=== PATIENT | male | born 1975 | race Caucasian/White ===

== ENCOUNTER → 2016-11-27 | Outpatient (REF) | payer OTHER | LOC: M LAB REF 12:31 | PROVIDERS: ATTEND Otolaryngology | DX: E04.1 Nontoxic single thyroid nodule (principal); D34 Benign neoplasm of thyroid gland ==

== ENCOUNTER → 2017-04-18 | Outpatient (CLI) | payer OTHER ==
[~2017-04-18] MED LIST: FISH1000 PO; LISI10TA4 PO; PROP160C PO; RIBO100C PO; TRAM50TA2 PO; VITA100067 PO; VITA500T PO
[2017-04-18 16:20] LABS: MEAN CORPUSCULAR HEMOGLOBIN 30.3 pg (27.0-33.0); MEAN CORPUSCULAR HGB CONC 34.8 g/dl (32.0-36.5); MEAN CORPUSCULAR VOLUME 87.2 fl (80.0-96.0); RED CELL DISTRIBUTION WIDTH 12.4 % (11.5-14.5); WHITE BLOOD COUNT 8.6 K/mm3 (4.0-10.0)
--- NOTE | 2017-04-18 17:48 | ECGEPIP ---
Stationary ECG Study [facility] Test Date: 2017-04-18 Pat Name: KATERINA PEPPER Department: Room: - Gender: M [employer]: : 1975 Requested By: LESLIE Voss Order Number: [id number] Reading MD: Wei Brewer Measurements Intervals [place] Rate: 75 P: 29 [place]: 149 QRS: 60 QRSD: 104 T: 0 QT: 344 QTc: 384 Interpretive Statements SINUS RHYTHM MODERATE T-WAVE ABNORMALITY, CONSIDER ANTEROLATERAL ISCHEMIA Comparison tracing not on file Electronically Signed On 04-18-2017 17:48:29 EDT by Wei Brewer
== END ==
LOC: M LAB 15:46
PROVIDERS: ATTEND Anesthesiology
DX: Z01.818 Encounter for other preprocedural examination (principal); E04.1 Nontoxic single thyroid nodule; I10 Essential (primary) hypertension; K21.9 Gastro-esophageal reflux disease without esophagitis

== ENCOUNTER → 2017-04-23 | Day surgery (SDC) | payer OTHER ==
[~2017-04-23] VITALS: Ht 188 cm; Wt 122.9 kg
[~2017-04-23] MED LIST changes: +ACETAMINOPH W/CODEINE #3 TAB UD PO PRN; +BACITRACIN OINT 30GM As Ordered ONE; +DESFLURANE 240 ML INHALANT As Ordered ONE; +HYDROmorphone HCL 1 MG/ML SYRINGE (J1170) IV PRN; +HYDROmorphone HCL 2 MG/ML 1ML VIAL (J1170) As Ordered ONE; +LIDOCAINE 2% INJ 100 MG/5 ML SDV (FOR ANES.) As Ordered ONE; +LIDOCAINE W/EPINEPHRINE 1% 20ML VIAL As Ordered ONE; +LR 1,000 ML IV ONE; +LR 1,000 ML IV SCH; +MIDAZOLAM INJ 2 MG/2 ML VIAL (J2250) As Ordered ONE; +ONDANSETRON 4MG/2ML VIAL (J2405) As Ordered ONE; +ONDANSETRON 4MG/2ML VIAL (J2405) IV PRN; +PERCOCET 5MG/325MG TAB PO PRN; +PROPOFOL 200 MG/20 ML VIAL As Ordered ONE; +PROPRANOLOL 80 MG LA CAP PO ONE; +SUCCINYLCHOLINE 100 MG/5 ML SYRINGE (J0330) As Ordered ONE; +dexameTHASONE 4 MG/ML 1ML VIAL (J1100) As Ordered ONE; +fentaNYL 100 MCG/2 ML INJECTION (J3010) IV PRN; +fentaNYL 250 MCG/5 ML INJECTION (J3010) As Ordered ONE
[2017-04-23 09:46] VITALS: BP 128/70
[2017-04-23 14:15] VITALS: BP 136/85
--- NOTE | 2017-04-24 10:59 | RO ---
DATE OF PROCEDURE: 04/23/2017 PREPROCEDURE DIAGNOSIS: Left thyroid mass. POSTPROCEDURE DIAGNOSIS: Left thyroid mass. PROCEDURE: Left thyroid lobectomy. SURGEON: Dr. Derick Boss. DOOR TO DOOR SELLING DISTRIBUTOR: ANESTHESIA: General. DESCRIPTION OF PROCEDURE: Under general anesthesia with the patient intubated, the patient was prepped and draped in the usual manner. The patient was intubated with a nerve monitoring endotracheal tube. The electrodes were hooked up as well on the skin. The patient was prepped and draped. A skin incision was marked out. I infiltrated with lidocaine and epinephrine. I divided the skin and subcutaneous tissues. I then used the harmonic scalpel to divide the platysma. Strap muscles were in the midline from superiorly to inferiorly. I divided the strap muscles along the left side. Once that was done, then I dissected the strap muscle off of the thyroid gland. I mobilized the superior aspect of the left lobe. I used the harmonic scalpel to divide the tissue between the larynx and the thyroid. I then went down and divided the thyroid isthmus using the harmonic scalpel. Then using sharp and blunt dissection and the harmonic scalpel, I divided the vessels to the superior lobe. I then went around the superior lobe. I dissected it free. Then attention was directed inferiorly. I dissected in the inferior lobe free. I stayed close to the gland to preserve the inferior parathyroid. The vessels were divided using the harmonic scalpel. Then I went laterally and divided the middle thyroid vein. I stayed close to the thyroid to preserve the superior parathyroid. I used sharp and blunt dissection and the harmonic scalpel as well as bipolar cautery. The recurrent laryngeal nerve was identified and then it was mobilized out of the way and then using the harmonic scalpel, I removed the rest of the left lobe of the thyroid. The patient tolerated the procedure well. I irrigated the areas to make sure there was no bleeding. The vessels seen bleeding were cauterized with the cautery. Once this was done, I placed some Surgicel in the wound and then closed the strap muscles with #4-0 Vicryl. I then removed an ellipse of skin and then closed the skin with #5-0 nylon. The patient tolerated the procedure well. There was less than 25 mm of estimated blood loss. The nerve was identified and stimulated at the end of the procedure and was intact. The patient was transferred to the recovery room in excellent condition. ADDENDUM: 04/23/2017 ASSISTANTS: Dr. Macias and Molina [place].
== END | disposition home or self-care (01) ==
LOC: M SDC 08:25
PROVIDERS: ATTEND Otolaryngology
DX: E04.2 Nontoxic multinodular goiter (principal); I10 Essential (primary) hypertension; K21.9 Gastro-esophageal reflux disease without esophagitis; M12.9 Arthropathy, unspecified; M54.2 Cervicalgia; M25.519 Pain in unspecified shoulder; F41.9 Anxiety disorder, unspecified; F32.9 Major depressive disorder, single episode, unspecified; G43.909 Migraine, unspecified, not intractable, without status migrainosus; G47.9 Sleep disorder, unspecified; R06.83 Snoring; Z91.048 Other nonmedicinal substance allergy status; Z79.899 Other long term (current) drug therapy; Z72.0 Tobacco use
CPT/HCPCS: 60220; 88307; J0330; J1100; J1170; J2250; J2405; J3010